=== PATIENT | male | born 1975 | race Caucasian/White ===

== ENCOUNTER 2016-12-18 09:51 | Emergency (ER) | payer OTHER ==
[2016-12-18 10:07] VITALS: RESP 16
[2016-12-18 10:22] LABS: Glucose,Whole Blood 113 mg/dL (75-99)
[2016-12-18 10:26] VITALS: TEMP 99.6
--- NOTE | 2016-12-18 10:36 | ED ---
General Adult HPI - General Chief complaint: Dizziness Stated complaint: HYPERTENSTION, NUMBNESS LEFT ARM. LOW RATE Time Seen by Provider: 12/18/16 10:00 Source: patient, RN notes reviewed Mode of arrival: wheelchair Limitations: no limitations - History of Present Illness Initial comments: This is a 40-year-old male presents emergency Department with a complaint of generalized weakness and fatigue. Patient states he has had no episode of this overall weakness and fatigue once before it lasted for 15 minutes and it went away. Patient states today it happened while he was sitting in the tub and he became so overwhelmed with weakness that he was unable to stand up and get out of the tub he had to roll out of the tub onto the floor. Patient states that he had multiple episodes whereby he became weak and felt like he couldn't stand it happened about 4 times each time lasting about 4-5 minutes. Patient denies any pain but he did state that he has some tingling in his left arm. Patient denies any chest pain or palpitations. Patient denies any shortness of breath or difficulty breathing. Patient denies any recent fever or chills. He states he is getting over an upper respiratory infection. Patient denies headache patient denies any focal numbness or weakness. - Related Data Home Medications Medication Instructions Recorded Confirmed Metoprolol Tartrate [Lopressor] 50 mg PO BID 12/18/16 12/18/16 Temazepam [Restoril] 15 mg PO HS PRN 12/18/16 12/18/16 Allergies Allergy/AdvReac Type Severity Reaction Status Date / Time No Known Allergies Allergy Verified 12/18/16 11:03 Review of Systems ROS Statement: Those systems with pertinent positive or pertinent negative responses have been documented in the HPI. ROS Other: All systems not noted in ROS Statement are negative. Past Medical History Past Medical History: Hypertension, Sleep Apnea/CPAP/BIPAP Additional Past Medical History / Comment(s): tachycardia, History of Any Multi-Drug Resistant Organisms: None Reported Past Surgical History: Hernia Repair Past Psychological History: Anxiety Smoking Status: Never smoker Past Alcohol Use History: Rare Past Drug Use History: None Reported General Exam - General Exam Comments Initial Comments: GENERAL: Patient is well-developed and well-nourished. Patient is nontoxic and well- hydrated and is in no acute distress. Patient is a 99.6 oral temperature when I took it ENT: Neck is soft and supple. No significant lymphadenopathy is noted. Oropharynx is clear. Moist mucous membranes. Neck has full range of motion without eliciting any pain. EYES: The sclera were anicteric and conjunctiva were pink and moist. Extraocular movements were intact and pupils were equal round and reactive to light. Eyelids were unremarkable. PULMONARY: Unlabored respirations. Good breath sounds bilaterally. No audible rales rhonchi or wheezing was noted. CARDIOVASCULAR: There is a regular rate and rhythm without any murmurs gallops or rubs. ABDOMEN: Soft and nontender with normal bowel sounds. No palpable organomegaly was noted. There is no palpable pulsatile mass. SKIN: Skin is clear with no lesions or rashes and otherwise unremarkable. NEUROLOGIC: Patient is alert and oriented x3. Cranial nerves II through XII are grossly intact. Motor and sensory are also intact. Normal speech, volume and content. Symmetrical smile. MUSCULOSKELETAL: Normal extremities with adequate strength and full range of motion. No lower extremity swelling or edema. No calf tenderness. LYMPHATICS: No significant lymphadenopathy is noted PSYCHIATRIC: Normal psychiatric evaluation. Normal interpersonal interactions appears functionally intact in deals appropriately with others. No signs of depression. No signs of anxiety. Limitations: no limitations Course Vital Signs 12/18/16 12/18/16 12/18/16 10:01 10:25 10:39 Temperature 98.3 F 99.6 F Pulse Rate 70 89 Respiratory 16 16 Rate Blood Pressure 162/100 156/93 Blood Pressure 150/93 [Right Arm Sitting] Blood Pressure 153/89 [Right Arm Standing] Blood Pressure 146/89 [Right Arm Supine] O2 Sat by Pulse 98 97 Oximetry Medical Decision Making - Medical Decision Making EKG shows normal sinus rhythm at 74 bpm OK interval 260 QRS is 90 QT interval 32 QTC is 424. Patient's EKG shows no ST segment elevation or depression Patient had no more symptoms while in the emergency department. Computed tomography scan of the brain shows no acute abnormality. Chest x-ray shows no acute abnormality. Patient states the only change she has been recently is doubled his metoprolol. I have informed the patient to take one and half times his previous dose - Lab Data Result diagrams: 12/18/16 10:25 12/18/16 10:25 Lab Results 12/18/16 12/18/16 12/18/16 Range/Units 10:21 10:25 10:25 WBC 9.9 (3.8-10.6) k/uL RBC 5.78 (4.30-5.90) m/uL Hgb 16.5 (13.0-17.5) gm/dL Hct 50.2 (39.0-53.0) % MCV 86.8 (80.0-100.0) fL MCH 28.6 (25.0-35.0) pg MCHC 33.0 (31.0-37.0) g/dL RDW 13.2 (11.5-15.5) % Plt Count 240 (150-450) k/uL Neutrophils % 76 % Lymphocytes % 15 % Monocytes % 5 % Eosinophils % 1 % Basophils % 0 % Neutrophils # 7.5 (1.3-7.7) k/uL Lymphocytes # 1.5 (1.0-4.8) k/uL Monocytes # 0.5 (0-1.0) k/uL Eosinophils # 0.1 (0-0.7) k/uL Basophils # 0.0 (0-0.2) k/uL PT (9.0-12.0) sec INR (<1.1) APTT (22.0-30.0) sec D-Dimer (<0.60) mg/L FEU Sodium (137-145) mmol/L Potassium (3.5-5.1) mmol/L Chloride (98-107) mmol/L Carbon Dioxide (22-30) mmol/L Anion Gap mmol/L BUN (9-20) mg/dL Creatinine (0.66-1.25) mg/dL Est GFR (MDRD) Af Amer (>60 ml/min/1.73 sqM) Est GFR (MDRD) Non-Af (>60 ml/min/1.73 sqM) Glucose (74-99) mg/dL POC Glucose (mg/dL) 113 H (75-99) mg/dL POC Glu Taker Off Braker Machine ID Braxton Vannessa Plasma Lactic Acid Mau (0.7-2.0) mmol/L Calcium (8.4-10.2) mg/dL Magnesium (1.6-2.3) mg/dL Total Bilirubin (0.2-1.3) mg/dL AST (17-59) U/L ALT (21-72) U/L Alkaline Phosphatase (38-126) U/L Total Creatine Kinase 129 (55-170) U/L CK-MB (CK-2) 0.5 (0.0-2.4) ng/mL CK-MB (CK-2) Rel Index 0.4 Troponin I <0.012 (0.000-0.034) ng/mL Total Protein (6.3-8.2) g/dL Albumin (3.5-5.0) g/dL TSH (0.465-4.680) mIU/L Free T4 (0.78-2.19) ng/dL Urine Color Urine Appearance (Clear) Urine pH (5.0-8.0) Ur Specific [place] (1.001-1.035) Urine Protein (Negative) Urine Glucose (UA) (Negative) Urine Ketones (Negative) Urine Blood (Negative) Urine Nitrite (Negative) Urine Bilirubin (Negative) Urine Urobilinogen (<2.0) mg/dL Ur Leukocyte Esterase (Negative) Urine Opiates Screen (NotDetected) Ur Oxycodone Screen (NotDetected) Urine Methadone Screen (NotDetected) Ur Propoxyphene Screen (NotDetected) Ur Barbiturates Screen (NotDetected) U Tricyclic Antidepress (NotDetected) Ur Phencyclidine Scrn (NotDetected) Ur Amphetamines Screen (NotDetected) U Methamphetamines Scrn (NotDetected) U Benzodiazepines Scrn (NotDetected) Urine Cocaine Screen (NotDetected) U Marijuana (THC) Screen (NotDetected) 12/18/16 12/18/16 12/18/16 Range/Units 10:25 10:25 10:25 WBC (3.8-10.6) k/uL RBC (4.30-5.90) m/uL Hgb (13.0-17.5) gm/dL Hct (39.0-53.0) % MCV (80.0-100.0) fL MCH (25.0-35.0) pg MCHC (31.0-37.0) g/dL RDW (11.5-15.5) % Plt Count (150-450) k/uL Neutrophils % % Lymphocytes % % Monocytes % % Eosinophils % % Basophils % % Neutrophils # (1.3-7.7) k/uL Lymphocytes # (1.0-4.8) k/uL Monocytes # (0-1.0) k/uL Eosinophils # (0-0.7) k/uL Basophils # (0-0.2) k/uL PT 10.4 (9.0-12.0) sec INR 1.0 (<1.1) APTT 25.3 (22.0-30.0) sec D-Dimer 0.24 (<0.60) mg/L FEU Sodium 141 (137-145) mmol/L Potassium 4.5 (3.5-5.1) mmol/L Chloride 103 (98-107) mmol/L Carbon Dioxide 23 (22-30) mmol/L Anion Gap 15 mmol/L BUN 14 (9-20) mg/dL Creatinine 0.83 (0.66-1.25) mg/dL Est GFR (MDRD) Af Amer >60 (>60 ml/min/1.73 sqM) Est GFR (MDRD) Non-Af >60 (>60 ml/min/1.73 sqM) Glucose 111 H (74-99) mg/dL POC Glucose (mg/dL) (75-99) mg/dL POC Glu Taker Off Braker Machine ID Plasma Lactic Acid Mau (0.7-2.0) mmol/L Calcium 9.5 (8.4-10.2) mg/dL Magnesium 1.9 (1.6-2.3) mg/dL Total Bilirubin 0.7 (0.2-1.3) mg/dL AST 33 (17-59) U/L ALT 47 (21-72) U/L Alkaline Phosphatase 54 (38-126) U/L Total Creatine Kinase (55-170) U/L CK-MB (CK-2) (0.0-2.4) ng/mL CK-MB (CK-2) Rel Index Troponin I (0.000-0.034) ng/mL Total Protein 8.0 (6.3-8.2) g/dL Albumin 4.7 (3.5-5.0) g/dL TSH (0.465-4.680) mIU/L Free T4 (0.78-2.19) ng/dL Urine Color Urine Appearance (Clear) Urine pH (5.0-8.0) Ur Specific [place] (1.001-1.035) Urine Protein (Negative) Urine Glucose (UA) (Negative) Urine Ketones (Negative) Urine Blood (Negative) Urine Nitrite (Negative) Urine Bilirubin (Negative) Urine Urobilinogen (<2.0) mg/dL Ur Leukocyte Esterase (Negative) Urine Opiates Screen (NotDetected) Ur Oxycodone Screen (NotDetected) Urine Methadone Screen (NotDetected) Ur Propoxyphene Screen (NotDetected) Ur Barbiturates Screen (NotDetected) U Tricyclic Antidepress (NotDetected) Ur Phencyclidine Scrn (NotDetected) Ur Amphetamines Screen (NotDetected) U Methamphetamines Scrn (NotDetected) U Benzodiazepines Scrn (NotDetected) Urine Cocaine Screen (NotDetected) U Marijuana (THC) Screen (NotDetected) 12/18/16 12/18/16 12/18/16 Range/Units 10:25 11:00 11:00 WBC (3.8-10.6) k/uL RBC (4.30-5.90) m/uL Hgb (13.0-17.5) gm/dL Hct (39.0-53.0) % MCV (80.0-100.0) fL MCH (25.0-35.0) pg MCHC (31.0-37.0) g/dL RDW (11.5-15.5) % Plt Count (150-450) k/uL Neutrophils % % Lymphocytes % % Monocytes % % Eosinophils % % Basophils % % Neutrophils # (1.3-7.7) k/uL Lymphocytes # (1.0-4.8) k/uL Monocytes # (0-1.0) k/uL Eosinophils # (0-0.7) k/uL Basophils # (0-0.2) k/uL PT (9.0-12.0) sec INR (<1.1) APTT (22.0-30.0) sec D-Dimer (<0.60) mg/L FEU Sodium (137-145) mmol/L Potassium (3.5-5.1) mmol/L Chloride (98-107) mmol/L Carbon Dioxide (22-30) mmol/L Anion Gap mmol/L BUN (9-20) mg/dL Creatinine (0.66-1.25) mg/dL Est GFR (MDRD) Af Amer (>60 ml/min/1.73 sqM) Est GFR (MDRD) Non-Af (>60 ml/min/1.73 sqM) Glucose (74-99) mg/dL POC Glucose (mg/dL) (75-99) mg/dL POC Glu Taker Off Braker Machine ID Plasma Lactic Acid Mau 1.7 (0.7-2.0) mmol/L Calcium (8.4-10.2) mg/dL Magnesium (1.6-2.3) mg/dL Total Bilirubin (0.2-1.3) mg/dL AST (17-59) U/L ALT (21-72) U/L Alkaline Phosphatase (38-126) U/L Total Creatine Kinase (55-170) U/L CK-MB (CK-2) (0.0-2.4) ng/mL CK-MB (CK-2) Rel Index Troponin I (0.000-0.034) ng/mL Total Protein (6.3-8.2) g/dL Albumin (3.5-5.0) g/dL TSH 0.871 (0.465-4.680) mIU/L Free T4 1.05 (0.78-2.19) ng/dL Urine Color Yellow Urine Appearance Clear (Clear) Urine pH 5.5 (5.0-8.0) Ur Specific [place] 1.018 (1.001-1.035) Urine Protein Trace H (Negative) Urine Glucose (UA) Negative (Negative) Urine Ketones Negative (Negative) Urine Blood Negative (Negative) Urine Nitrite Negative (Negative) Urine Bilirubin Negative (Negative) Urine Urobilinogen <2.0 (<2.0) mg/dL Ur Leukocyte Esterase Negative (Negative) Urine Opiates Screen Not Detected (NotDetected) Ur Oxycodone Screen Not Detected (NotDetected) Urine Methadone Screen Not Detected (NotDetected) Ur Propoxyphene Screen Not Detected (NotDetected) Ur Barbiturates Screen Not Detected (NotDetected) U Tricyclic Antidepress Not Detected (NotDetected) Ur Phencyclidine Scrn Not Detected (NotDetected) Ur Amphetamines Screen Not Detected (NotDetected) U Methamphetamines Scrn Not Detected (NotDetected) U Benzodiazepines Scrn Detected H (NotDetected) Urine Cocaine Screen Not Detected (NotDetected) U Marijuana (THC) Screen Not Detected (NotDetected) Disposition Clinical Impression: Adverse drug reaction, Lightheadedness Disposition: HOME SELF-CARE Instructions: Adverse Drug Reaction (ED) Additional Instructions: Patient should take 37.5 mg of metoprolol twice a day instead of 50 twice a day. Patient should return to the emergency room for new or worsening symptoms Referrals: Yuriy Ferreira III, MD [Primary Care Provider] - 1-2 days Time of Disposition: 12:36
[2016-12-18 10:48] LABS: Basophils % (A) 0 %; CH 28.6; CHCM 33.1; Eosinophils # (A) 0.1 k/uL (0-0.7); Eosinophils % (A) 1 %; HCT 50.2 % (39.0-53.0); HDW 2.39; HGB 16.5 gm/dL (13.0-17.5); Luc # (Auto) 0.25; Luc % (Auto) 3; Lymphocytes # (A) 1.5 k/uL (1.0-4.8); Lymphocytes % (A) 15 %; MCH 28.6 pg (25.0-35.0); MCV 86.8 fL (80.0-100.0); Mean Platelet Volume 7.3; Monocytes # (A) 0.5 k/uL (0-1.0); Monocytes % (A) 5 %; Neutrophils # (A) 7.5 k/uL (1.3-7.7); Neutrophils % (A) 76 %; RBC 5.78 m/uL (4.30-5.90); RDW 13.2 % (11.5-15.5); WBC 9.9 k/uL (3.8-10.6); WBC (Perox) 10.43
[2016-12-18 11:02] LABS: ALT 47 U/L (21-72); AST 33 U/L (17-59); Alkaline Phosphatase 54 U/L (38-126); Anion Gap 15 mmol/L; Blood Urea Nitrogen 14 mg/dL (9-20); Calcium 9.5 mg/dL (8.4-10.2); Carbon Dioxide 23 mmol/L (22-30); Chloride 103 mmol/L (98-107); Glucose 111 mg/dL (74-99); Magnesium 1.9 mg/dL (1.6-2.3); Non-African American GFR(MDRD) >60 (>60 ml/min/1.73 sqM); Potassium 4.5 mmol/L (3.5-5.1); Sodium 141 mmol/L (137-145); Total Bilirubin 0.7 mg/dL (0.2-1.3)
[2016-12-18 11:05] LABS: Creatine Kinase 129 U/L (55-170)
[2016-12-18 11:15] LABS: Partial Thromboplastin Time 25.3 sec (22.0-30.0); Prothrombin Time 10.4 sec (9.0-12.0)
[2016-12-18 11:18] LABS: Creatine Kinase MB 0.5 ng/mL (0.0-2.4); Troponin I <0.012 ng/mL (0.000-0.034)
[2016-12-18 11:29] LABS: Appearance,Urine Clear (Clear); Bilirubin,Urine Negative (Negative); Glucose,Urine (UA) Negative (Negative); Ketones,Urine Negative (Negative); Leukocyte Esterase,Urine Negative (Negative); Nitrite,Urine Negative (Negative); PH, Urine 5.5 (5.0-8.0); Protein,Urine Trace (Negative); Specific Gravity,Urine 1.018 (1.001-1.035); UA Billing (MACRO vs. MICRO) CHEM; Urobilinogen,Urine <2.0 mg/dL (<2.0)
--- NOTE | 2016-12-18 11:29 | CT ---
EXAMINATION TYPE: CT brain wo con DATE OF EXAM: 12/18/2016 10:59 AM COMPARISON: NONE HISTORY: Fatigue and dizziness with left arm numbness. CT DLP: 1180 mGycm. Automated Exposure Control for Dose Reduction was Utilized. TECHNIQUE: CT scan of the head is performed without contrast. FINDINGS: There is no acute intracranial hemorrhage, mass effect, or midline shift identified. The ventricles and sulci are within normal limits in size. The globes are intact and the visualized sin uses are clear. Small posterior scalp hematoma left occipital region is seen near axial image 52. May be subacute in age as is not significantly hyperdense. Clinical correlation advised. The calvarium i s intact. IMPRESSION: No acute intracranial hemorrhage, mass effect, or midline shift is seen. Small midline a cute or subacute scalp hematoma posterior occiput noted.
--- NOTE | 2016-12-18 11:35 | XR ---
EXAMINATION TYPE: XR chest 2V DATE OF EXAM: 12/18/2016 11:22 AM COMPARISON: Prior chest x-ray June 24, 2013. HISTORY: Chest pain per order. Weakness today. TECHNIQUE: Frontal and lateral views of the chest are obtained. FINDINGS: Diminished inspiration is noted on current study. There is no focal air space opacity, ple ural effusion, or pneumothorax seen. The cardiac silhouette size is within normal limits. The osse ous structures are intact. IMPRESSION: No acute cardiopulmonary process.
[2016-12-18 12:51] VITALS: BP 141/82; PULSE 64
== END 2016-12-18 12:53 | disposition home or self-care (01) ==
LOC: EC 09:51
DX: R42 Dizziness and giddiness (principal); I10 Essential (primary) hypertension; R20.0 Anesthesia of skin; R53.1 Weakness; R53.83 Other fatigue; R20.2 Paresthesia of skin; T50.905A Adverse effect of unspecified drugs, medicaments and biological substances, initial encounter; Z79.899 Other long term (current) drug therapy
CPT/HCPCS: 36415; 70450; 71020; 80053; 80306; 81003; 82550; 82553; 83605; 83735; 84439; 84443; 84484; 85025; 85379; 85610; 85730; 93005; 99285

== ENCOUNTER 2019-09-19 16:42 | Observation (INO) | payer OTHER ==
--- NOTE | 2019-09-19 16:51 | ED ---
Chest Pain HPI - General Stated Complaint: Chest pain Time Seen by Provider: 09/19/19 16:48 Source: RN notes reviewed, old records reviewed Limitations: no limitations - History of Present Illness Initial Comments: This is a 43-year-old male here for evaluation. Patient is for evaluation regards tochest pain. History of high blood pressure family history of heart disease and a smoker. Patient is a couple episodes of this recently with recent EKG changes Perce primary care pain began today at work was having a sinus chest. Patient again has no recent travel or sick contacts. No other significant complaint. Patient's pain is currently gone it was worse and is doing activity early MD Complaint: chest pain -: hour(s) Onset: during rest Pain Location: substernal Pain Radiation: none Severity: mild Severity scale (1-10): 3 Quality: aching, heaviness Consistency: intermittent, now resolved Improves With: nothing Worsens With: exertion Anginal Symptoms: diaphoresis, dyspnea Treatments Prior to Arrival: none - Related Data Home Medications Medication Instructions Recorded Confirmed Aspirin EC [Ecotrin] 325 mg PO DAILY PRN 09/19/19 09/19/19 Ibuprofen [Advil] 200 mg PO Q8HR PRN 09/19/19 09/19/19 Losartan Potassium 100 mg PO HS 09/19/19 09/19/19 Allergies Allergy/AdvReac Type Severity Reaction Status Date / Time No Known Allergies Allergy Verified 09/19/19 18:05 Review of Systems ROS Statement: Those systems with pertinent positive or pertinent negative responses have been documented in the HPI. ROS Other: All systems not noted in ROS Statement are negative. EKG Findings - EKG Comments: EKG Findings:: EKG shows sinus rhythm rate of 98,AK 168, QRS 96, QTC 434 Past Medical History Past Medical History: Hypertension, Sleep Apnea/CPAP/BIPAP Additional Past Medical History / Comment(s): tachycardia, History of Any Multi-Drug Resistant Organisms: None Reported Past Surgical History: Hernia Repair Past Psychological History: Anxiety Smoking Status: Never smoker Past Alcohol Use History: Rare Past Drug Use History: None Reported General Exam General appearance: alert, in no apparent distress Head exam: Present: atraumatic, normocephalic, normal inspection Eye exam: Present: normal appearance, PERRL, EOMI. Absent: scleral icterus, conjunctival injection, periorbital swelling ENT exam: Present: normal exam, mucous membranes moist Neck exam: Present: normal inspection. Absent: tenderness, meningismus, lymphadenopathy Respiratory exam: Present: normal lung sounds bilaterally. Absent: respiratory distress, wheezes, rales, rhonchi, stridor Cardiovascular Exam: Present: regular rate, normal rhythm, normal heart sounds. Absent: systolic murmur, diastolic murmur, rubs, gallop, clicks GI/Abdominal exam: Present: soft, normal bowel sounds. Absent: distended, tenderness, guarding, rebound, rigid Extremities exam: Present: normal inspection, full ROM, normal capillary refill. Absent: tenderness, pedal edema, joint swelling, calf tenderness Back exam: Present: normal inspection Neurological exam: Present: alert, oriented X3, CN II-XII intact Psychiatric exam: Present: normal affect, normal mood Skin exam: Present: warm, dry, intact, normal color. Absent: rash Course Vital Signs 09/19/19 16:52 Temperature 97.6 F Pulse Rate 92 Respiratory 18 Rate Blood Pressure 161/109 O2 Sat by Pulse 100 Oximetry - Reevaluation(s) Reevaluation #1: 09/19/19 17:40 medical record is reviewed Reevaluation #2: 09/19/19 18:43 patient still complaining of occasional chest pain, occasional sweatiness - Consultations Consultation #1: spoke with Dr. Liu agreeable for his admission Chest Pain MDM - MDM 33-year-old male here with ACS symptoms coming in for acute chest pain. Patient's high blood pressure, smoke or strong family history of heart disease, is classic and typical symptoms. Will be admitted for cardiology observation Critical Care Time Critical Care Time: Yes Total Critical Care Time: 31 Disposition Clinical Impression: Atypical chest pain, Chest pain Disposition: ADMITTED IP TO THIS HOSP Condition: Undetermined Instructions (If sedation given, give patient instructions): Chest Pain (ED) Is patient prescribed a controlled substance at d/c from ED?: No Referrals: Tulio Liu MD [Primary Care Provider] - 1-2 days
--- NOTE | 2019-09-19 17:09 | XR ---
EXAMINATION TYPE: XR chest 2V DATE OF EXAM: 09/19/2019 COMPARISON: Chest x-ray December 18, 2016. HISTORY: Weakness and chest pain. TECHNIQUE: Frontal and lateral views of the chest are obtained. FINDINGS: There is no focal air space opacity, pleural effusion, or pneumothorax seen. The cardiac silhouette size is stable and upper limits of normal. The osseous structures are intact. IMPRESSION: No acute cardiopulmonary process. No significant change from prior.
[2019-09-19 17:16] LABS: ALT 24 U/L (4-49); AST 30 U/L (17-59); African American GFR (CKD) >90 (>60 ml/min/1.73 sqM); Albumin 4.8 g/dL (3.5-5.0); Alkaline Phosphatase 63 U/L (38-126); Anion Gap 11 mmol/L; Basophils # (A) 0.1 k/uL (0-0.2); Basophils % (A) 1 %; Blood Urea Nitrogen 16 mg/dL (9-20); Calcium 9.4 mg/dL (8.4-10.2); Carbon Dioxide 24 mmol/L (22-30); Chloride 104 mmol/L (98-107); Eosinophils # (A) 0.2 k/uL (0-0.7); Eosinophils % (A) 2 %; Glucose 98 mg/dL (74-99); HCT 46.1 % (39.0-53.0); HGB 15.4 gm/dL (13.0-17.5); Lymphocytes # (A) 2.1 k/uL (1.0-4.8); Lymphocytes % (A) 20 %; MCH 29.3 pg (25.0-35.0); MCHC 33.3 g/dL (31.0-37.0); Magnesium 1.8 mg/dL (1.6-2.3); Mean Platelet Volume 8.4; Monocytes # (A) 0.6 k/uL (0-1.0); Monocytes % (A) 5 %; Neutrophils # (A) 7.4 k/uL (1.3-7.7); Neutrophils % (A) 70 %; Non-African American GFR(CKD) >90 (>60 ml/min/1.73 sqM); Platelet Count 249 k/uL (150-450); Potassium 3.7 mmol/L (3.5-5.1); RBC 5.24 m/uL (4.30-5.90); RDW 12.8 % (11.5-15.5); Sodium 139 mmol/L (137-145); Total Bilirubin 0.9 mg/dL (0.2-1.3); Total Protein 8.3 g/dL (6.3-8.2); WBC 10.5 k/uL (3.8-10.6)
[2019-09-19 17:27] LABS: D-Dimer 0.24 mg/L FEU (<0.60); INR 0.9 (<1.2); Partial Thromboplastin Time 24.6 sec (22.0-30.0)
[2019-09-19] MEDS ORDERED: NITROGLYCERIN SL TABS 0.4 MG TAB SUBLINGUAL PRN (21:23)
[2019-09-19] MEDS ORDERED: IBUPROFEN 400 MG TAB PO PRN (21:25)
[2019-09-19] MEDS ORDERED: LOSARTAN 50 MG TAB PO SCH (23:17)
[2019-09-20 05:46] LABS: Cholesterol 167 mg/dL (<200); HDL Cholesterol 52 mg/dL (40-60); LDL Cholesterol,Calculated 90 mg/dL (0-99); Triglycerides 127 mg/dL (<150)
--- NOTE | 2019-09-20 07:55 | HP ---
HISTORY AND PHYSICAL A 43-year-old white male admitted for atypical chest pain. He has high blood pressure, a smoker. Family history heart disease. He had abnormal EKG recently, sent him for a stress test. Insurance apparently denied stress test at which time due to increasing chest pain, he came to the emergency room with aching, heaviness, improves with nothing, worsens with exertion, associated with diaphoresis. REVIEW OF SYSTEMS: Fourteen-point review of systems negative except for mentioned in HPI. HOME MEDICINES: 1. Losartan 100 mg daily. 2. Aspirin 325 daily. 3. Ibuprofen 200 q.8. EKG sinus rhythm. PAST MEDICAL HISTORY: Sleep apnea, hypertension, hernia repair, anxiety. PHYSICAL EXAM: Vital signs are stable, afebrile. CARDIOVASCULAR: S1, S2. LUNGS: Clear. GI: Soft. HEMATOLOGY: Negative Homans. PSYCH: Fair mood and affect. NEUROLOGIC: Cranial nerves are intact. SKIN: No rash, excoriation, or bruising. Temperature 97.5, pulse 92, respiratory rate is 16 to 18, blood pressure 161/109. ASSESSMENT: 1. Atypical chest pain. 2. Diaphoresis. 3. Hypertension, acceleration. A 23-hour admit. Cardiology consult. Possible stress test. Ruled out for myocardial infarction. D-dimer is negative. Chest x-ray is negative. MMODL / IJN: [id number] /
[2019-09-20 08:35] VITALS: RESP 18
--- NOTE | 2019-09-20 08:48 | CONS ---
CONSULTATION Mr. Aguilar is a 43-year-old male, patient of Dr. Liu, with a history of hypertension who presented with symptoms of chest discomfort. He has been having chest discomfort on and off for a while. Yesterday after working a heavy physical job about a half an hour after he felt tightness in the chest with no associated dyspnea, but he felt dizzy and presyncopal. The discomfort persisted, came into the emergency room subsequently admitted. The patient has a history of hypertension and has been exercising on and off and when he exercises on the treadmill at the gym and lost weight he feels quite well without any symptoms. The discomfort in the past was in the same pattern associated with dizziness, but not associated with physical activity. He has no history of PND, orthopnea, or peripheral edema. No syncope. His coronary risk factors are remarkable for the hypertension. He is nondiabetic. His lipid profile is not available. There is a family history of premature coronary disease on his father side of the family. MEDICATION: His medications at home include losartan 100 mg daily, aspirin once a day as well as on p.r.n. basis. REVIEW OF SYSTEMS: mechanism, rate of 98, left ventricular hypertrophy with nonspecific ST-T wave changes. Chest x-ray with no acute infiltrate. Troponin less than 0.012 for [QAMARKER. LDL of 90. Hemoglobin of 15.4, BUN and creatinine 16 and 0.86. IMPRESSION: 1. Chest discomfort has atypical features for ischemic heart disease, probably noncardiac. 2. Hypertension. 3. History of back discomfort. RECOMMENDATION: I recommend proceeding with a stress echocardiogram and a transthoracic echo and depending on results of testing, further recommendation will be made. Thank you for this consult. We will follow with you. MMODL / IJN: [id number] /
[2019-09-20] MEDS ORDERED: ASPIRIN 81 MG PO SCH (09:00)
[2019-09-20] MEDS ORDERED: ASPIRIN 325 MG TAB PO SCH (09:00)
--- NOTE | 2019-09-20 11:56 | ECHOF ---
Referral Reason:cp MEASUREMENTS -------- HEIGHT: 180.3 cm WEIGHT: 117.9 kg BP: RVIDd: 4.7 cm (< 3.3) IVSd: 1.4 cm (0.6 - 1.1) LVIDd: 4.2 cm (3.9 - 5.3) LVPWd: 1.5 cm (0.6 - 1.1) IVSs: 2.0 cm LVIDs: 2.5 cm LVPWs: 1.7 cm Ao Diam: 3.0 cm (2.0 - 3.7) AV Cusp: 1.8 cm (1.5 - 2.6) LA Diam: 3.7 cm (2.7 - 3.8) MV EXCURSION: 25.336 mm (> 18.000) MV EF SLOPE: 145 mm/s (70 - 150) EPSS: 0.5 cm MV E Gorge: 0.66 m/s MV DecT: 317 ms MV A Gorge: 0.41 m/s MV E/A Ratio: 1.63 RAP: 5.00 mmHg RVSP: 31.76 mmHg FINDINGS -------- Sinus rhythm. This was a technically difficult study with suboptimal views. The left ventricular size is normal. There is moderate concentric left ventricular hypertrophy. O verall left ventricular systolic function is normal with, an EF between 55 - 60 %. The right ventricle is severely enlarged. The left atrial size is normal. The right atrial size is normal. Lumason used The aortic valve is trileaflet, and appears structurally normal. No aortic stenosis or regurgitation. The mitral valve is normal. Mild mitral regurgitation is present. The tricuspid valve appears structurally normal. Mild tricuspid regurgitation present. Right vent ricular systolic pressure is normal at < 35 mmHg. There is no pulmonic regurgitation present. The aortic root size is normal. Normal inferior vena cava with normal inspiratory collapse consistent with estimated right atrial pre ssure of 5 mmHg. There is no pericardial effusion. CONCLUSIONS -------- 1. Sinus rhythm. 2. This was a technically difficult study with suboptimal views. 3. The left ventricular size is normal. 4. There is moderate concentric left ventricular hypertrophy. 5. Overall left ventricular systolic function is normal with, an EF between 55 - 60 %. 6. The right ventricle is severely enlarged. 7. The left atrial size is normal. 8. Lumason used 9. The aortic valve is trileaflet, and appears structurally normal. No aortic stenosis or regurgitati on. 10. The mitral valve is normal. 11. Mild mitral regurgitation is present. 12. The tricuspid valve appears structurally normal. 13. Mild tricuspid regurgitation present. 14. There is no pulmonic regurgitation present. 15. The aortic root size is normal. 16. Normal inferior vena cava with normal inspiratory collapse consistent with estimated right atrial pressure of 5 mmHg. 17. There is no pericardial effusion. ACCOUNTS RECEIVABLE ACCOUNTANT: Nya Cordero RDCS
--- NOTE | 2019-09-20 12:55 | ECHOS ---
STRESS ECHOCARDIOGRAM INDICATIONS: Chest pain. MEDICATIONS: Losartan BASELINE HEART RATE: 89 BASELINE BLOOD PRESSURE: 104/58 MAXIMUM HEART RATE: 175 MAXIMUM BLOOD PRESSURE: 212/65 85% MPHR: 152 100% MPHR: 179 METS: 10.1 MAXIMUM STAGE REACHED: 3 TOTAL EXERCISE TIME: 8:45 CLINICAL INFORMATION: Baseline rhythm is a sinus mechanism, rate of 89, normal axis, intervals, normal echocardiogram. Baseline blood pressure 104/58 mmHg. Patient exercised on Johnathan protocol for 8 minute 45 seconds reaching a peak rate 175 beats per minute which is equal to 97% maximum predicted heart rate. Peak blood pressure 212/65 mmHg. Test was terminated secondary to fatigue. There was no chest pain. Electrocardiograph monitoring revealed no evidence of diagnostic ischemic ST deviation. FINDING: Baseline echocardiogram revealed normal wall thickening and motion. At peak exercise there was normal wall motion augmentation with no hypokinesis or dyskinesis. IMPRESSION: 1. Good exercise tolerance with normal electrocardiographic response to exercise. 2. Normal stress echocardiogram with no evidence of stress-induced ischemia. MMODL / IJN: [id number] /
[2019-09-20 13:02] VITALS: BP 113/73; PULSE 87; TEMP 98.4
[2019-09-20] MEDS ORDERED: LOSARTAN 50 MG TAB PO SCH (21:00)
--- NOTE | 2019-10-08 23:55 | DS ---
DISCHARGE SUMMARY ADMITTED: 09/19/2019. DISCHARGED: 09/20/2019. DISCHARGE MEDICATIONS: 1. Losartan 100 mg daily. 2. Advil 200 q.8 hours. 3. Aspirin 325 daily. CONDITION: Stable. PROGNOSIS: Guarded. Ambulate as tolerated. HOSPITAL COURSE OF EVENTS: Temo Aguilar came into the hospital with atypical chest pain. Echocardiogram, stress echo was done. Cleared from Cardiology standpoint after stress echo came back normal. Pulmonary embolism was ruled out. No stress-induced ischemia was seen. He was sent home in stable condition. Follow up as an outpatient. MMODL / IJN: [id number] /
== END 2019-09-20 14:49 | disposition home or self-care (01) ==
LOC: EC 16:42 → 1SOBS 21:25
PROVIDERS: ADMIT Family Medicine; ATTEND Family Medicine
DX: R07.89 Other chest pain (principal); R61 Generalized hyperhidrosis; I10 Essential (primary) hypertension; I08.1 Rheumatic disorders of both mitral and tricuspid valves; G47.30 Sleep apnea, unspecified; F41.9 Anxiety disorder, unspecified; Z79.899 Other long term (current) drug therapy; Z98.890 Other specified postprocedural states; Z87.39 Personal history of other diseases of the musculoskeletal system and connective tissue; Z82.49 Family history of ischemic heart disease and other diseases of the circulatory system; Z81.2 Family history of tobacco abuse and dependence
CPT/HCPCS: 93005 ×2; 99291; 36415; 93306; 93351; 85379; 80061; 80053; 83690; 83735; 84484 ×2; 85025; 85610; 85730; 71046; G0378 ×2; Q9950

== ENCOUNTER 2019-11-29 09:23 | Day surgery (SDC) | payer OTHER ==
[2019-11-26 10:38] VITALS: BMI 34.8
[~2019-11-29 09:23] MED LIST: LACTATED RINGERS 1,000 ML IV SCH; LIDOCAINE 1% (10MG/ML) FOR IV START INTRADERMA PRN
[2019-11-29 09:46] VITALS: TEMP 97.2
[2019-11-29] MEDS ORDERED: PROPOFOL 10 MG/ML 20 ML VIAL IV ONE (10:32)
[2019-11-29] MEDS ORDERED: LIDOCAINE 1% INJ 10MG/ML (20 ML MDV) ONE (10:32)
--- NOTE | 2019-11-29 10:50 | P.GSHP ---
History of Present Illness H&P Date: 11/29/19 Chief Complaint: GERD This a 43-year-old male who's had issues with GERD. Patient rents today for EGD. Past Medical History Past Medical History: GERD/Reflux, Hypertension, Sleep Apnea/CPAP/BIPAP Additional Past Medical History / Comment(s): hx. tachycardia, increasing heartburn, sensation of something back in throat, chest discomfort, occasional dysphagia History of Any Multi-Drug Resistant Organisms: None Reported Past Surgical History: Hernia Repair Additional Past Surgical History / Comment(s): hernia repair as baby Past Anesthesia/Blood Transfusion Reactions: No Reported Reaction, Family History of Problems w/ Anesthesia Additional Past Anesthesia/Blood Transfusion Reaction / Comment(s): mom had problems waking up from surgery recently and respirations bottomed out-needing narcan Smoking Status: Former smoker - Past Family History Mother Family Medical History: No Reported History Medications and Allergies Home Medications Medication Instructions Recorded Confirmed Type Losartan Potassium 100 mg PO HS 09/19/19 11/26/19 History Omeprazole [PriLOSEC] 20 mg PO AC-[id number] 11/26/19 11/26/19 History Allergies Allergy/AdvReac Type Severity Reaction Status Date / Time No Known Allergies Allergy Verified 11/29/19 09:35 Surgical - Exam Vital Signs Temp Pulse Resp BP Pulse Ox 97.2 F L 90 16 144/80 95 11/29/19 09:41 11/29/19 09:41 11/29/19 09:41 11/29/19 09:41 11/29/19 09:41 - General well developed, well nourished, no distress - Eyes PERRL - ENT normal pinna - Neck no masses - Respiratory normal expansion - Cardiovascular Rhythm: regular - Abdomen Abdomen: soft, non tender Assessment and Plan Assessment: GERD. We'll perform EGD.
--- NOTE | 2019-11-29 10:58 | P.OP ---
Date of Procedure: 11/29/19 Preoperative Diagnosis: GERD Postoperative Diagnosis: Antral gastritis Minimal esophagitis Procedure(s) Performed: EGD Anesthesia: MAC Surgeon: Aleksey Ríos Estimated Blood Loss (ml): 5 Pathology: other (Antrum, esophagus) Condition: stable Disposition: PACU Description of Procedure: The patient's placed on the endoscopy table in the lateral position. He received IV sedation. The gastroscope placed oropharynx and passed in the esophagus and stomach. Scope was placed through the pylorus. The first and second portion of the duodenum appeared normal. Scope was then brought back the antrum this appeared mildly inflamed. A biopsies performed. Scope was retroflexed and remainder of the stomach appeared normal. There is no significant hiatal hernia. The GE junction was at 40 cm. The distal esophagus appeared minimally inflamed. A biopsies performed proximal esophagus appeared normal.
[2019-11-29 12:20] VITALS: BP 138/80; PULSE 69; RESP 17
--- NOTE | 2019-11-29 16:03 | NM ---
Nuclear medicine hepatobiliary scan. HISTORY: Pain. DOSAGE: The patient received 2.3 micrograms of CCK and 5.3 mCi of Technetium 99m Choletec. FINDINGS: There is normal hepatic extraction. The gallbladder is seen by 20 minutes. There is bilia ry to bowel clearance by 20 minutes. Ejection fraction is 51%. IMPRESSION: 1. Normal hepatobiliary exam
== END 2019-11-29 13:29 | disposition home or self-care (01) ==
LOC: ORWHC2ENDO 09:23
PROVIDERS: ATTEND Surgery
DX: K21.0 Gastro-esophageal reflux disease with esophagitis (principal); K29.50 Unspecified chronic gastritis without bleeding; I10 Essential (primary) hypertension; G47.33 Obstructive sleep apnea (adult) (pediatric); R13.10 Dysphagia, unspecified; R94.31 Abnormal electrocardiogram [ECG] [EKG]; S49.90XA Unspecified injury of shoulder and upper arm, unspecified arm, initial encounter; E73.9 Lactose intolerance, unspecified; R00.0 Tachycardia, unspecified; B07.9 Viral wart, unspecified; Z79.899 Other long term (current) drug therapy; Z99.89 Dependence on other enabling machines and devices; Z98.890 Other specified postprocedural states; Z87.891 Personal history of nicotine dependence; Z84.89 Family history of other specified conditions; X58.XXXA Exposure to other specified factors, initial encounter
CPT/HCPCS: 88305; 78227; 43239; A9537; J2805; J2001; J2704

== ENCOUNTER → 2019-12-16 | Outpatient (CLI) | payer OTHER ==
--- NOTE | 2019-12-16 07:32 | US ---
EXAMINATION TYPE: US gallbladder DATE OF EXAM: 12/16/2019 COMPARISON: HIDA scan November 29, 2019 CLINICAL HISTORY: K21.9 Gerd , R10.13 Epigastric Pain. EXAM MEASUREMENTS: Liver Length: 14.9 cm Gallbladder Wall: 0.3 cm CBD: 0.5 cm Right Kidney: 12.6 x 6.3 x 5.6 cm Pancreas: not well visualized Liver: wnl Gallbladder: No stones seen Evidence for sonographic Argueta's sign: No CBD: wnl Right Kidney: No hydronephrosis or masses seen Visualized pancreas is within normal limits. Visualized liver is heterogeneously hyperechoic. No susp icious mass or ductal dilatation images saved. Gallbladder is seen without shadowing mobile gallstone s. Limited images right kidney show no gross hydronephrosis. IMPRESSION: No shadowing mobile gallstones or ultrasound evidence for acute cholecystitis. Diffuse fa tty infiltration of liver is present.
--- NOTE | 2019-12-16 08:44 | FL ---
EXAMINATION TYPE: FL UGI air w esophagus DATE OF EXAM: 12/16/2019 COMPARISON: NONE HISTORY: GERD and epigastric pain. Some relief with reflux medications. Symptoms increasing in severi ty over last 20 years. Recent scope in last few months showed gastritis and reflux per patient. TECHNIQUE: A double contrast UGI study is performed. Total of 53 seconds of fluoroscopic time. 77 sp ot images saved. FINDINGS: Corrections Officer image of the abdomen shows no gross abnormality. The esophagus shows satisfactory motility and emptying into the stomach. No evidence of fixed hiatal hernia or stricture noted. Small sliding type hiatal hernia noted during performance of study. The stomach shows normal satisfactory distensibility and peristalsis. There is a moderate fundal matti ritis with prominence of gastric folds at this level. No evidence of any intraluminal mass or ulcer d isease. A few episodes of gastroesophageal reflux into the distal one third of esophagus noted during real-time performance. The duodenal bulb, sweep, and proximal small bowel loops are unremarkable. IMPRESSION: Fairly moderate fundal gastritis with small sliding-type hiatal hernia and [id number] te distal gastroesophageal reflux.
== END | disposition home or self-care (01) ==
LOC: RADUSWWP 06:54
PROVIDERS: ATTEND Surgery
DX: K76.0 Fatty (change of) liver, not elsewhere classified (principal); K29.70 Gastritis, unspecified, without bleeding; K44.9 Diaphragmatic hernia without obstruction or gangrene; K21.9 Gastro-esophageal reflux disease without esophagitis
CPT/HCPCS: 74246; 76705

== ENCOUNTER 2020-04-26 11:36 | Emergency (ER) | payer OTHER ==
[2020-04-26 11:49] VITALS: TEMP 97.4
[2020-04-26] MEDS ORDERED: SODIUM CHLORIDE 0.9% 1,000 ML IV STA ×2 (11:52)
[2020-04-26] MEDS ORDERED: KETOROLAC 30 MG/ML 1 ML VIAL IVP STA (11:53)
[2020-04-26 12:03] LABS: Glucose,Whole Blood 105 mg/dL (75-99)
[2020-04-26 12:21] LABS: Basophils # (A) 0.1 k/uL (0-0.2); Basophils % (A) 1 %; Eosinophils # (A) 0.2 k/uL (0-0.7); Eosinophils % (A) 2 %; HCT 46.8 % (39.0-53.0); HGB 15.2 gm/dL (13.0-17.5); Lymphocytes # (A) 2.4 k/uL (1.0-4.8); Lymphocytes % (A) 26 %; MCH 29.1 pg (25.0-35.0); MCHC 32.5 g/dL (31.0-37.0); MCV 89.3 fL (80.0-100.0); Mean Platelet Volume 8.2; Monocytes # (A) 0.5 k/uL (0-1.0); Monocytes % (A) 6 %; Neutrophils # (A) 5.7 k/uL (1.3-7.7); Neutrophils % (A) 63 %; Platelet Count 232 k/uL (150-450); RBC 5.23 m/uL (4.30-5.90); WBC 9.1 k/uL (3.8-10.6)
--- NOTE | 2020-04-26 12:29 | XR ---
EXAMINATION TYPE: XR hand complete LT DATE OF EXAM: 04/26/2020 COMPARISON: None HISTORY: Trauma, pain Saw injury TECHNIQUE: Three-view left hand FINDINGS: No acute fractures or dislocations are evident. Joint spaces are preserved. No radiopaque f oreign bodies are evident. IMPRESSION: 1. No acute post traumatic abnormality. Follow-up exams can be performed 7-10 days from acute trauma for continued pain.
[2020-04-26 12:33] LABS: ALT 21 U/L (4-49); AST 26 U/L (17-59); African American GFR (CKD) >90 (>60 ml/min/1.73 sqM); Albumin 4.6 g/dL (3.5-5.0); Alkaline Phosphatase 53 U/L (38-126); Anion Gap 9 mmol/L; Blood Urea Nitrogen 13 mg/dL (9-20); Calcium 9.5 mg/dL (8.4-10.2); Carbon Dioxide 24 mmol/L (22-30); Chloride 107 mmol/L (98-107); Creatine Kinase 197 U/L (55-170); Glucose 113 mg/dL (74-99); Magnesium 2.1 mg/dL (1.6-2.3); Non-African American GFR(CKD) >90 (>60 ml/min/1.73 sqM); Sodium 140 mmol/L (137-145); Total Bilirubin 0.9 mg/dL (0.2-1.3); Total Protein 7.5 g/dL (6.3-8.2)
[2020-04-26] MEDS ORDERED: LIDOCAINE 1% INJ 10MG/ML (20 ML MDV) SQ ONE (13:03)
[2020-04-26 13:08] VITALS: BP 131/77; PULSE 66; RESP 16
--- NOTE | 2020-04-26 13:08 | ED ---
Wound/Laceration HPI <Eduardo Yusuf - Last Filed: 04/26/20 13:30> - General Source: patient, RN notes reviewed Mode of arrival: ambulatory Limitations: no limitations <Temo Altamirano - Last Filed: 04/26/20 13:41> - General Chief Complaint: Wound/Laceration Stated Complaint: hand lac-table saw Time Seen by Provider: 04/26/20 11:50 - History of Present Illness Initial Comments: This a 44-year-old male with a benign past medical history who states he cut his left thumb on a table saw just prior to arrival. He did drive himself and over the triage locke he became very lightheaded dizzy and diaphoretic and almost passed out. Once he got back to the treatment area he started feel much improved. The only injury is isolated left thumb injury. Complaints at this time. He is feeling improved (Temo Altamirano) - Related Data Home Medications Medication Instructions Recorded Confirmed Omeprazole [PriLOSEC] 20 mg PO HS 11/26/19 04/26/20 Losartan [Cozaar] 100 mg PO HS 04/26/20 04/26/20 Previous Rx's Medication Instructions Recorded Cephalexin [Keflex] 500 mg PO Q8HR 3 Days #9 cap 04/26/20 Ibuprofen 800 mg PO Q6HR PRN #20 tablet 04/26/20 Allergies Allergy/AdvReac Type Severity Reaction Status Date / Time No Known Allergies Allergy Verified 04/26/20 12:35 Review of Systems ROS Other: All systems not noted in ROS Statement are negative. <Eduardo Yusuf - Last Filed: 04/26/20 13:30> ROS Other: All systems not noted in ROS Statement are negative. <Temo Altamirano - Last Filed: 04/26/20 13:41> ROS Statement: Those systems with pertinent positive or pertinent negative responses have been documented in the HPI. Past Medical History Past Medical History: GERD/Reflux, Hypertension, Sleep Apnea/CPAP/BIPAP Additional Past Medical History / Comment(s): hx. tachycardia, increasing heartburn, sensation of something back in throat, chest discomfort, occasional dysphagia History of Any Multi-Drug Resistant Organisms: None Reported Past Surgical History: Hernia Repair Additional Past Surgical History / Comment(s): hernia repair as baby Past Anesthesia/Blood Transfusion Reactions: No Reported Reaction, Family History of Problems w/ Anesthesia Additional Past Anesthesia/Blood Transfusion Reaction / Comment(s): mom had problems waking up from surgery recently and respirations bottomed out-needing narcan Past Psychological History: Anxiety Past Alcohol Use History: Rare Past Drug Use History: None Reported - Past Family History Mother Family Medical History: No Reported History <AdarshTemo - Last Filed: 04/26/20 13:41> General Exam Limitations: no limitations General appearance: alert, anxious Head exam: Present: atraumatic, normocephalic, normal inspection Eye exam: Present: normal appearance, PERRL, EOMI. Absent: scleral icterus, conjunctival injection, periorbital swelling ENT exam: Present: normal exam, mucous membranes moist Neck exam: Present: normal inspection, full ROM, other. Absent: tenderness, meningismus, lymphadenopathy Respiratory exam: Present: normal lung sounds bilaterally. Absent: respiratory distress, wheezes, rales, rhonchi, stridor Cardiovascular Exam: Present: regular rate, normal rhythm, normal heart sounds. Absent: systolic murmur, diastolic murmur, rubs, gallop, clicks GI/Abdominal exam: Present: soft, normal bowel sounds. Absent: distended, tenderness, guarding, rebound, rigid Extremities exam: Present: full ROM, tenderness, normal capillary refill, other (Evidence of a laceration through the volar and tip of the left thumb mid region approximately 2 cm in length currently no active bleeding no definite foreign body seen and no definite step-off or crepitation DIP joint appears be intact as does the MCP joint.). Absent: pedal edema, joint swelling, calf tenderness Back exam: Present: normal inspection Neurological exam: Present: alert, oriented X3, CN II-XII intact Psychiatric exam: Present: normal affect, normal mood Skin exam: Present: warm, intact, normal color, diaphoretic. Absent: rash <AdarshTemo - Last Filed: 04/26/20 13:41> - General Exam Comments Initial Comments: This is a well-developed well-nourished awake alert oriented times 3 male was treated a Daisy Coma Scale of 15 (Temo Altamirano) Course <Temo Altamirano - Last Filed: 04/26/20 13:41> Vital Signs 04/26/20 04/26/20 11:46 13:06 Temperature 97.4 F L Pulse Rate 72 66 Respiratory 20 16 Rate Blood Pressure 100/68 131/77 O2 Sat by Pulse 100 100 Oximetry - Reevaluation(s) Reevaluation #1: 04/26/20 13:08 The patient does believe his last tetanus shot was within 5 years. (Temo Altamirano) Procedures - Laceration Laceration #1 Consent Obtained: verbal consent Indication: laceration Site: upper extremity Size (cm): 2 Description: linear Depth: simple, single layer Anesthetic Used: lidocaine 1% Anesthesia Technique: local infiltration Amount (mls): 4 Pre-repair: wound explored, irrigated extensively (saline pressure irrigation), deep structures intact Type of Sutures: nylon Size of Sutures: 5-0 Number of Sutures: 5 Technique: simple, interrupted Patient Tolerated Procedure: well, no complications <Eduardo Yusuf P - Last Filed: 04/26/20 13:30> Medical Decision Making - Lab Data Result diagrams: 04/26/20 12:00 04/26/20 12:00 <Eduardo Yusuf P - Last Filed: 04/26/20 13:30> - Lab Data Result diagrams: 04/26/20 12:00 04/26/20 12:00 - EKG Data -: EKG Interpreted by Me EKG shows normal: sinus rhythm (Sinus rhythm a 64 with NM interval of 170 QRS duration 90 QT since QTC 390/4 to pulses criteria for LVH no acute ST-T wave changes) - Radiology Data Radiology results: report reviewed (I did review), image reviewed <Temo Altamirano - Last Filed: 04/26/20 13:41> - Medical Decision Making Patient is feeling much improved this time I did review the imaging no evidence of bony involvement or foreign body. The patient is so much improved as stated. The left thumb laceration was repaired by my physician greenhouse assistant, Eduardo. I did discuss the findings with the patient due to the wound location and depth the patient will be placed on a short course of antibiotics he is aware of return parameters of evidence of infection manifest. Otherwise suture removal in 10 days. Elevation I did recommend cold compresses if needed. And return when necessary (Temo Altamirano) - Lab Data Lab Results 04/26/20 04/26/20 04/26/20 Range/Units 11:58 12:00 12:00 WBC 9.1 (3.8-10.6) k/uL RBC 5.23 (4.30-5.90) m/uL Hgb 15.2 (13.0-17.5) gm/dL Hct 46.8 (39.0-53.0) % MCV 89.3 (80.0-100.0) fL MCH 29.1 (25.0-35.0) pg MCHC 32.5 (31.0-37.0) g/dL RDW 13.0 (11.5-15.5) % Plt Count 232 (150-450) k/uL Neutrophils % 63 % Lymphocytes % 26 % Monocytes % 6 % Eosinophils % 2 % Basophils % 1 % Neutrophils # 5.7 (1.3-7.7) k/uL Lymphocytes # 2.4 (1.0-4.8) k/uL Monocytes # 0.5 (0-1.0) k/uL Eosinophils # 0.2 (0-0.7) k/uL Basophils # 0.1 (0-0.2) k/uL Sodium 140 (137-145) mmol/L Potassium 4.0 (3.5-5.1) mmol/L Chloride 107 (98-107) mmol/L Carbon Dioxide 24 (22-30) mmol/L Anion Gap 9 mmol/L BUN 13 (9-20) mg/dL Creatinine 0.81 (0.66-1.25) mg/dL Est GFR (CKD-EPI)AfAm >90 (>60 ml/min/1.73 sqM) Est GFR (CKD-EPI)NonAf >90 (>60 ml/min/1.73 sqM) Glucose 113 H (74-99) mg/dL POC Glucose (mg/dL) 105 H (75-99) mg/dL POC Glu Building Architect [facility] Calcium 9.5 (8.4-10.2) mg/dL Magnesium 2.1 (1.6-2.3) mg/dL Total Bilirubin 0.9 (0.2-1.3) mg/dL AST 26 (17-59) U/L ALT 21 (4-49) U/L Alkaline Phosphatase 53 (38-126) U/L Creatine Kinase 197 H (55-170) U/L Total Protein 7.5 (6.3-8.2) g/dL Albumin 4.6 (3.5-5.0) g/dL Disposition <Eduardo Yusuf - Last Filed: 04/26/20 13:30> Is patient prescribed a controlled substance at d/c from ED?: No <Temo Altamirano - Last Filed: 04/26/20 13:41> Clinical Impression: Laceration of left thumb, Vasovagal episode Disposition: HOME SELF-CARE Condition: Good Instructions (If sedation given, give patient instructions): Finger Laceration (ED), Near Syncope (ED) Additional Instructions: Medication prescriptions he described it to your preferred pharmacy Prescriptions: Ibuprofen 800 mg PO Q6HR PRN #20 tablet PRN Reason: Pain Cephalexin [Keflex] 500 mg PO Q8HR 3 Days #9 cap Referrals: Tulio Liu MD [Primary Care Provider] - 1-2 days
== END 2020-04-26 14:03 | disposition home or self-care (01) ==
LOC: EC 11:36
DX: S61.012A Laceration without foreign body of left thumb without damage to nail, initial encounter (principal); R55 Syncope and collapse; K21.9 Gastro-esophageal reflux disease without esophagitis; I10 Essential (primary) hypertension; G47.30 Sleep apnea, unspecified; Z79.899 Other long term (current) drug therapy; Z99.89 Dependence on other enabling machines and devices; W31.2XXA Contact with powered woodworking and forming machines, initial encounter
CPT/HCPCS: 36415; 93005; 80053; 82550; 83735; 85025; 73130; 99283; 12001; 96365; 96375; 96361; J0690; J2001; J1885

== ENCOUNTER 2020-07-25 19:35 | Emergency (ER) | payer OTHER ==
--- NOTE | 2020-07-25 19:59 | ED ---
General Adult HPI - General Chief complaint: Upper Respiratory Infection Stated complaint: Covid Positive Time Seen by Provider: 07/25/20 19:43 Source: patient Mode of arrival: wheelchair Limitations: no limitations - History of Present Illness Initial comments: Patient is a 44-year-old male presenting to the emergency department with a chief complaint of cold symptoms. Patient states he tested positive for covid- 19 3 days ago. States that he was symptomatic for about a week prior to the testing. States her to first week, he had relatively mild symptoms. However, during the past 48 hours his symptoms have been intermittent with fatigue, fever and dizziness. He denies any chest pain but feels like he cannot take a deep breath. This doesn't seem to be exacerbated with exertion. States so far he has only taken TheraFlu with no significant improvement symptoms. Patient also reports a nonproductive cough over the last few days. he does report diaphoretic episodes that are intermittent in nature. States she does have history of vertigo. He denies any nausea, vomiting, diarrhea, abdominal pain, headaches, loss of taste or smell. No history of asthma, COPD or smoking. - Related Data Home Medications Medication Instructions Recorded Confirmed Omeprazole [PriLOSEC] 20 mg PO HS 11/26/19 04/26/20 Losartan [Cozaar] 100 mg PO HS 04/26/20 04/26/20 Previous Rx's Medication Instructions Recorded Cephalexin [Keflex] 500 mg PO Q8HR 3 Days #9 cap 04/26/20 Ibuprofen 800 mg PO Q6HR PRN #20 tablet 04/26/20 Allergies Allergy/AdvReac Type Severity Reaction Status Date / Time No Known Allergies Allergy Verified 07/25/20 19:52 Review of Systems ROS Statement: Those systems with pertinent positive or pertinent negative responses have been documented in the HPI. ROS Other: All systems not noted in ROS Statement are negative. Past Medical History Past Medical History: GERD/Reflux, Hypertension, Sleep Apnea/CPAP/BIPAP Additional Past Medical History / Comment(s): hx. tachycardia, increasing h eartburn, sensation of something back in throat, chest discomfort, occasional dysphagia History of Any Multi-Drug Resistant Organisms: None Reported Past Surgical History: Hernia Repair Additional Past Surgical History / Comment(s): hernia repair as baby Past Anesthesia/Blood Transfusion Reactions: No Reported Reaction, Family History of Problems w/ Anesthesia Additional Past Anesthesia/Blood Transfusion Reaction / Comment(s): mom had problems waking up from surgery recently and respirations bottomed out-needing narcan Past Psychological History: Anxiety Smoking Status: Never smoker Past Alcohol Use History: Rare Past Drug Use History: None Reported - Past Family History Mother Family Medical History: No Reported History General Exam Limitations: no limitations General appearance: alert, in no apparent distress, obese Head exam: Present: atraumatic, normocephalic, normal inspection Eye exam: Present: normal appearance, PERRL, EOMI Pupils: Present: normal accommodation ENT exam: Present: normal exam, normal oropharynx, mucous membranes moist, TM's normal bilaterally, normal external ear exam Neck exam: Present: normal inspection, full ROM. Absent: tenderness, lymphadenopathy Respiratory exam: Present: normal lung sounds bilaterally. Absent: respiratory distress, wheezes, rales Cardiovascular Exam: Present: regular rate, normal rhythm, normal heart sounds Extremities exam: Present: normal inspection, full ROM, normal capillary refill. Absent: tenderness, pedal edema, joint swelling, calf tenderness Back exam: Present: normal inspection, full ROM. Absent: tenderness, CVA tenderness (R), CVA tenderness (L) Neurological exam: Present: alert, oriented X3, normal gait Psychiatric exam: Present: normal affect, normal mood Skin exam: Present: warm, dry, intact, normal color Course Vital Signs 07/25/20 07/25/20 07/25/20 19:37 20:00 20:54 Temperature 99.0 F 98.4 F Pulse Rate 81 97 Respiratory 18 20 20 Rate Blood Pressure 180/93 154/86 O2 Sat by Pulse 97 99 Oximetry EKG Findings - EKG Comments: EKG Findings:: Sinus rhythm inverted T-wave in lead 3. Q wave in lead 3. Ventricular rate 89, IA 174, QRS 90, QTC 430. Medical Decision Making - Medical Decision Making Patient is a 44-year-old male presenting to emergency Department with a chief complaint of Covid symptoms. On physical examination, patient does not appear to be in any respiratory distress. He did feel slightly dizzy but no horizontal or vertical nystagmus was detected. EKG shows sinus rhythm with an inverted T- wave and Q wave in lead 3. Chest x-ray is unremarkable. CBC CMP and coags are within normal limits. D-dimer is negative. Initial troponins are negative. On reevaluation, his dizziness has resolved which she believes is due to sitting still in the bed. He continues to have adequate oxygen saturation levels. Patient does feel comfortable home. He was advised to take Tylenol if he develops a fever. He was advised to self isolate. Strict return parameters were thoroughly discussed the patient was understanding and agreeable. Case discussed with physician. - Lab Data Result diagrams: 07/25/20 20:09 07/25/20 20:09 Lab Results 07/25/20 07/25/20 07/25/20 Range/Units 20:09 20:09 20:09 WBC 5.3 (3.8-10.6) k/uL RBC 5.49 (4.30-5.90) m/uL Hgb 16.3 (13.0-17.5) gm/dL Hct 48.7 (39.0-53.0) % MCV 88.7 (80.0-100.0) fL MCH 29.7 (25.0-35.0) pg MCHC 33.5 (31.0-37.0) g/dL RDW 12.6 (11.5-15.5) % Plt Count 206 (150-450) k/uL Neutrophils % 61 % Lymphocytes % 21 % Monocytes % 10 % Eosinophils % 2 % Basophils % 2 % Neutrophils # 3.2 (1.3-7.7) k/uL Lymphocytes # 1.1 (1.0-4.8) k/uL Monocytes # 0.5 (0-1.0) k/uL Eosinophils # 0.1 (0-0.7) k/uL Basophils # 0.1 (0-0.2) k/uL PT 9.4 (9.0-12.0) sec INR 0.9 (<1.2) APTT 25.8 (22.0-30.0) sec D-Dimer 0.28 (<0.60) mg/L FEU Sodium 140 (137-145) mmol/L Potassium 4.0 (3.5-5.1) mmol/L Chloride 105 (98-107) mmol/L Carbon Dioxide 26 (22-30) mmol/L Anion Gap 9 mmol/L BUN 13 (9-20) mg/dL Creatinine 0.74 (0.66-1.25) mg/dL Est GFR (CKD-EPI)AfAm >90 (>60 ml/min/1.73 sqM) Est GFR (CKD-EPI)NonAf >90 (>60 ml/min/1.73 sqM) Glucose 103 H (74-99) mg/dL Plasma Lactic Acid Mau (0.7-2.0) mmol/L Calcium 8.8 (8.4-10.2) mg/dL Magnesium 2.2 (1.6-2.3) mg/dL Total Bilirubin 0.5 (0.2-1.3) mg/dL AST 34 (17-59) U/L ALT 30 (4-49) U/L Alkaline Phosphatase 56 (38-126) U/L Troponin I (0.000-0.034) ng/mL Total Protein 7.7 (6.3-8.2) g/dL Albumin 4.3 (3.5-5.0) g/dL 07/25/20 07/25/20 Range/Units 20:09 20:09 WBC (3.8-10.6) k/uL RBC (4.30-5.90) m/uL Hgb (13.0-17.5) gm/dL Hct (39.0-53.0) % MCV (80.0-100.0) fL MCH (25.0-35.0) pg MCHC (31.0-37.0) g/dL RDW (11.5-15.5) % Plt Count (150-450) k/uL Neutrophils % % Lymphocytes % % Monocytes % % Eosinophils % % Basophils % % Neutrophils # (1.3-7.7) k/uL Lymphocytes # (1.0-4.8) k/uL Monocytes # (0-1.0) k/uL Eosinophils # (0-0.7) k/uL Basophils # (0-0.2) k/uL PT (9.0-12.0) sec INR (<1.2) APTT (22.0-30.0) sec D-Dimer (<0.60) mg/L FEU Sodium (137-145) mmol/L Potassium (3.5-5.1) mmol/L Chloride (98-107) mmol/L Carbon Dioxide (22-30) mmol/L Anion Gap mmol/L BUN (9-20) mg/dL Creatinine (0.66-1.25) mg/dL Est GFR (CKD-EPI)AfAm (>60 ml/min/1.73 sqM) Est GFR (CKD-EPI)NonAf (>60 ml/min/1.73 sqM) Glucose (74-99) mg/dL Plasma Lactic Acid Mau 1.0 (0.7-2.0) mmol/L Calcium (8.4-10.2) mg/dL Magnesium (1.6-2.3) mg/dL Total Bilirubin (0.2-1.3) mg/dL AST (17-59) U/L ALT (4-49) U/L Alkaline Phosphatase (38-126) U/L Troponin I <0.012 (0.000-0.034) ng/mL Total Protein (6.3-8.2) g/dL Albumin (3.5-5.0) g/dL Disposition Clinical Impression: Respiratory infection, Cough Disposition: HOME SELF-CARE Condition: Stable Instructions (If sedation given, give patient instructions): Viral Pneumonia (DC) Additional Instructions: Self isolate until you are free of symptoms for at least 48 hours without taking any medication. Take Tylenol only if you develop a Fever. Return to emergency department if symptoms worsen. Follow with primary care physician. Is patient prescribed a controlled substance at d/c from ED?: No Referrals: Tulio Liu MD [Primary Care Provider] - 1-2 days Time of Disposition: 21:47
[2020-07-25 20:20] LABS: Basophils # (A) 0.1 k/uL (0-0.2); Basophils % (A) 2 %; Eosinophils # (A) 0.1 k/uL (0-0.7); Eosinophils % (A) 2 %; HCT 48.7 % (39.0-53.0); HGB 16.3 gm/dL (13.0-17.5); Lymphocytes # (A) 1.1 k/uL (1.0-4.8); Lymphocytes % (A) 21 %; MCH 29.7 pg (25.0-35.0); MCHC 33.5 g/dL (31.0-37.0); MCV 88.7 fL (80.0-100.0); Mean Platelet Volume 7.5; Monocytes # (A) 0.5 k/uL (0-1.0); Monocytes % (A) 10 %; Neutrophils # (A) 3.2 k/uL (1.3-7.7); Neutrophils % (A) 61 %; Platelet Count 206 k/uL (150-450); RBC 5.49 m/uL (4.30-5.90); RDW 12.6 % (11.5-15.5); WBC 5.3 k/uL (3.8-10.6)
--- NOTE | 2020-07-25 20:26 | XR ---
EXAMINATION TYPE: XR chest 1V portable DATE OF EXAM: 07/25/2020 COMPARISON: 09/19/2019 HISTORY: Cough and fever TECHNIQUE: FINDINGS: Heart and mediastinum are normal. Lungs are clear. Diaphragm is normal. Bony thorax appears normal. IMPRESSION: Normal chest. No change.
[2020-07-25 20:29] LABS: ALT 30 U/L (4-49); AST 34 U/L (17-59); African American GFR (CKD) >90 (>60 ml/min/1.73 sqM); Albumin 4.3 g/dL (3.5-5.0); Alkaline Phosphatase 56 U/L (38-126); Anion Gap 9 mmol/L; Blood Urea Nitrogen 13 mg/dL (9-20); Calcium 8.8 mg/dL (8.4-10.2); Carbon Dioxide 26 mmol/L (22-30); Chloride 105 mmol/L (98-107); Glucose 103 mg/dL (74-99); Magnesium 2.2 mg/dL (1.6-2.3); Non-African American GFR(CKD) >90 (>60 ml/min/1.73 sqM); Sodium 140 mmol/L (137-145); Total Bilirubin 0.5 mg/dL (0.2-1.3); Total Protein 7.7 g/dL (6.3-8.2)
[2020-07-25 20:36] LABS: D-Dimer 0.28 mg/L FEU (<0.60); INR 0.9 (<1.2); Partial Thromboplastin Time 25.8 sec (22.0-30.0); Prothrombin Time 9.4 sec (9.0-12.0)
[2020-07-25 22:07] VITALS: BP 151/94; PULSE 92; RESP 18; TEMP 98.3
== END 2020-07-25 22:07 | disposition home or self-care (01) ==
LOC: EC 19:35
DX: J98.8 Other specified respiratory disorders (principal); K21.9 Gastro-esophageal reflux disease without esophagitis; I10 Essential (primary) hypertension; G47.30 Sleep apnea, unspecified; Z79.899 Other long term (current) drug therapy; Z99.89 Dependence on other enabling machines and devices
CPT/HCPCS: 36415; 71045; 80053; 83605; 83735; 84484; 85025; 85379; 85610; 85730; 87040; 93005; 99284